=== PATIENT | male | born 1980 | race Caucasian/White ===

== ENCOUNTER 2022-05-12 13:47 | Emergency (ER) | payer OTHER, SELFPAY ==
[2022-05-12 13:58] VITALS: BP 139/87; PULSE 63; RESP 16; TEMP 36.3; O2SAT 99
--- NOTE | 2022-05-12 14:19 | PC.NURSE ---
EDP at bedside to assess pt.
--- NOTE | 2022-05-12 14:21 | ED.WOUNDLAC ---
HPI - Wound/Laceration General Chief Complaint: Wound/Laceration Stated Complaint: hand lac Time Seen by Provider: 05/12/22 14:10 History of Present Illness HPI narrative: 41-year-old male presents emergency room for evaluation of a laceration to his right hand. Patient states he was using a pulp grinder feeder saw when he was not paying attention and accidentally cut his hand. Tetanus is not up-to-date. Patient states he has full range of motion of his thumb and index fingers. Denies any numbness or tingling distal to the injury Related Data Allergies Allergy/AdvReac Type Severity Reaction Status Date / Time No Known Allergies Allergy Verified 05/12/22 13:48 Review of Systems Review of Systems: CONSTITUTIONAL: Denies fever, chills, or sweats. EYES: Denies visual changes, redness, or discharge. ENT: Denies rhinorrhea, congestion, sore throat, or otalgia. CARDIOVASCULAR: Denies chest pain, palpitations, or edema. RESPIRATORY: Denies cough or dyspnea. GASTROINTESTINAL: Denies abdominal pain, nausea, vomiting, or diarrhea. GENITOURINARY: Denies dysuria or hematuria. SKIN: Reports laceration to right hand MUSCULOSKELETAL: Denies back pain, joint pain, or myalgia. NEUROLOGIC: Denies headache, numbness, dizziness, or weakness. PSYCHIATRIC: Denies anxiety or depression. Exam Narrative: GENERAL: Well-appearing, well-nourished, no physical limitations, and in no acute distress. HEAD: Normocephalic, atraumatic. EYES: Conjunctivae normal, PERRLA and EOMI. CHEST: Clear to auscultation. No respiratory distress. No wheezes rales or rhonchi. No tenderness. HEART: Regular rate and rhythm. No murmur heard. Normal peripheral pulses. BACK: No CVA tenderness; No cervical/thoracic/lumbar tenderness, step-offs, bony abnormality; FROM EXTREMITIES: Right hand: Full range of motion to the thumb and index fingers with no joint laxity. Neurovascular is intact distal to injury SKIN: 5.2 cm linear laceration to the dorsal surface of the right hand over the webbing NEURO: No focal deficits. Alert and oriented x3. MAEW. CN's II-XI intact bilaterally, normal gait PSYCH: Cooperative. Normal mood and affect. Course Vital Signs Vital signs: Vital Signs Temperature 36.3 C L 05/12/22 13:58 Pulse Rate 63 05/12/22 13:58 Respiratory Rate 16 05/12/22 13:58 Blood Pressure 139/87 05/12/22 13:58 Pulse Oximetry 99 05/12/22 13:58 Temperature 36.3 C L 05/12/22 13:58 Pulse Rate 63 05/12/22 13:58 Respiratory Rate 16 05/12/22 13:58 Blood Pressure 139/87 05/12/22 13:58 Pulse Oximetry 99 05/12/22 13:58 Procedures Laceration Laceration 1: Date: 05/12/22 Time: 15:41 Site: hand Side (If applicable): right Size (cm): 5.2 Description: linear Depth: simple, single layer Local Anesthetic: lidocaine 1% Amount of anesthesia used (mL): 15 Pre-repair: irrigated and irrigated extensively ====== Skin Level ====== Skin layer closed with: nylon Size (cm): 4-0 Number of sutures: 10 Technique: simple, interrupted ====== Subcutaneous Layer ====== Subcutaneous layer closed with: vicryl Size: 4-0 Number of sutures: 4 Technique: simple, interrupted ====== Muscle Layer ====== ====== Tendon Layer ====== Discharge Plan Discharge Follow-up/Referrals: PHYSICIAN,V BELT INSPECTOR [Primary Care Provider] -
--- NOTE | 2022-05-12 15:10 | PC.NURSE ---
EDP at bedside to complete laceration repair of right hand.
[2022-05-12] MEDS: TETANUS,DIPHTHERIA,AC PERTUSSIS ADULT (0.5 ML) BOOSTRIX IM (15:26)
[2022-05-12] MEDS: CEPHALEXIN 500 MG CAPSULE PO (15:57)
== END 2022-05-12 16:18 | disposition home or self-care (01) ==
LOC: ANHED 16:00
PROVIDERS: Emergency Provider Nurse Practitioner Family
DX: S61.411A Laceration without foreign body of right hand, initial encounter (principal); Z23 Encounter for immunization; W31.2XXA Contact with powered woodworking and forming machines, initial encounter
CPT/HCPCS: 12042; 90471; 90715; 99283; A9270

== ENCOUNTER 2022-05-26 15:49 | Emergency (ER) | payer OTHER, SELFPAY ==
--- NOTE | ~2022-05-26 | XR_ITS ---
EXAM: XR ankle RT min 3V DATE: 05/26/2022 16:13 HISTORY: RT LATERAL ANKLE PAIN. INJURY . COMPARISON: None available. FINDINGS: Normal mineralization. Small minimally displaced fracture of the lateral talar process. No lytic or blastic lesion. Mild degenerative change at the tibiotalar and calcaneonavicular articulati ons. Prominent os trigonum. Achilles enthesopathy. No erosion or periosteal change. Soft tissues with in normal limits. IMPRESSION: Small, minimally displaced fracture of the right lateral talar process. Reviewed, dictated and finalized at location K. IMPRESSION: Small, minimally displaced fracture of the right lateral talar proc ess.
[2022-05-26 15:55] VITALS: BP 140/58; PULSE 70; RESP 16; TEMP 36.8; O2SAT 98
--- NOTE | 2022-05-26 16:19 | ED.LOWEXIN ---
HPI - Extremity Injury (Lower) General Chief Complaint: Extremity Injury, Lower Stated Complaint: Right ankle injury Time Seen by Provider: 05/26/22 16:19 Source: patient Mode of arrival: ambulatory Limitations: no limitations History of Present Illness HPI Narrative: 41-year-old male presented for complaint of right ankle pain and swelling for 4 days after injury. He endorses jumping on a 2 x 4 in order to prep the fence post, when it broke causing him to fall and injure the right ankle. He has been walking on it since then. He has been using RICE therapy. Denies numbness, tingling, weakness. Related Data Allergies Allergy/AdvReac Type Severity Reaction Status Date / Time No Known Allergies Allergy Verified 05/26/22 16:16 Review of Systems Review of Systems: CONSTITUTIONAL: Denies body aches, fever, chills CARDIOVASCULAR: Denies chest pain, palpitations, or edema. RESPIRATORY: Denies cough or dyspnea. GASTROINTESTINAL: Denies abdominal pain, nausea, vomiting, or diarrhea. SKIN: Denies rash, itching, or wounds. MUSCULOSKELETAL: Reports right ankle pain. NEUROLOGIC: Denies headache, numbness, tingling, or weakness. All systems reviewed & are unremarkable except as noted in HPI and below PMFSH Comments At time of signature, I have reviewed and agree with nursing past medical, surgical, social and family history unless otherwise noted. Please see nursing chart for further information. There is no relevant family history pertinent to the presenting complaint Exam Narrative: GENERAL: Well-appearing CHEST: Speaks in full sentences. No respiratory distress. HEART: Regular rate and rhythm. Normal and equal peripheral pulses. EXTREMITIES: Right ankle with moderate bruising to bilateral aspects of ankle and heel; moderate swelling laterally; Tenderness with palpation to anterior/ lateral aspect of ankle has normal strength and sensation, normal range of motion at ankle, but endorses pain with movement. No open wounds, or obvious deformity; pulse palpable and equal bilaterally, skin warm, dry, pink. Capillary refill less than 3 seconds. SKIN: Warm, dry, no rash. NEURO: Alert and oriented x3. PSYCH: Normal mood and affect Course Course Emergency Course: Patient is aware of diagnosis, understands and agrees to treatment plan. Anticipatory guidance given. Patient agrees to follow-up as directed and is aware of reasons to seek care at the emergency department. Portions of this record may have been created with voice recognition software Level of Care: Express Care Visit Vital Signs Vital signs: Vital Signs Temperature 98.2 F 05/26/22 15:55 Pulse Rate 70 05/26/22 15:55 Respiratory Rate 16 05/26/22 15:55 Blood Pressure 140/58 L 05/26/22 15:55 Pulse Oximetry 98 05/26/22 15:55 Oxygen Delivery Room Air 05/26/22 15:55 Temperature 98.2 F 05/26/22 15:55 Pulse Rate 70 05/26/22 15:55 Respiratory Rate 16 05/26/22 15:55 Blood Pressure 140/58 L 05/26/22 15:55 Pulse Oximetry 98 05/26/22 15:55 Oxygen Delivery Room Air 05/26/22 15:55 Reviewed Procedures Orthopedic Splinting/Casting Right foot: OCL: posterior Pre-Procedure Neuro Vascular Exam: normal Post-Procedure Neuro Vascular Exam: normal Additional Comments: states he has crutches at home MDM - Extremity Injury (Lower) MDM Narrative Medical decision making narrative: Result of x-ray reviewed with patient. OCL applied per tech. He states he has crutches at home. Advised supportive measures and signs/symptoms to go to the ER. Pt is appropriate for outpt treatment and f/u with ortho. Differential Diagnosis Differential diagnosis: Likely ankle fracture and other (foot fracture, ankle sprain/strain) Imaging Data Radiologist's impression: Patient: Jonnie Cardenas : 1980 MR#: [id number] Age/Sex: 41 / M Acct:[id number] Loc: [facility]? ? ADM Date: 05/26/22Attending Dr: Ordering Abhishek
== END 2022-05-26 17:05 | disposition home or self-care (01) ==
PROVIDERS: Emergency Provider Nurse Practitioner Family
DX: S92.141A Displaced dome fracture of right talus, initial encounter for closed fracture (principal); W19.XXXA Unspecified fall, initial encounter
CPT/HCPCS: 29515; 73610; 99213; 99214; G0463